=== PATIENT | female | born 1990 | race Caucasian/White ===

== ENCOUNTER 2017-03-08 00:23 | Emergency (ER) | payer OTHER ==
[~2017-03-08] VITALS: Ht 162.6 cm; Wt 54.5 kg
[~2017-03-08 00:23] MED LIST: ACET500C5 PO; CIPR500T4 PO; PHEN-538 PO; PREN1TAB49 PO
[2017-03-08 00:55] VITALS: Ht 162.6 cm; Wt 54.5 kg
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
[2017-03-08 03:16] LABS: ADD UMIC YES; UR ASCORBIC ACID NEGATIVE (NEGATIVE); UR BACTERIA MODERATE /HPF (NONE SEEN); UR BILIRUBIN (Dip) NEGATIVE (NEGATIVE); UR BLOOD (Dip) 3+ mg/dL (NEGATIVE); UR CLARITY CLOUDY (CLEAR); UR COLOR YELLOW (YELLOW); UR GLUCOSE (Dip) NEGATIVE (NEGATIVE); UR KETONES (Dip) NEGATIVE (NEGATIVE); UR LEUKOCYTE ESTERASE (Dip) 3+ Leu/ul (NEGATIVE); UR MUCUS FEW /HPF (NONE SEEN); UR NITRITE (Dip) NEGATIVE (NEGATIVE); UR RBC 24 /HPF (0-5); UR SPECIFIC GRAVITY (Dip) 1.009 (1.003-1.030); UR SQUAMOUS EPITHELIAL CELL FEW /HPF (FEW); UR TOTAL PROTEIN (Dip) 2+ mg/dl (NEGATIVE); UR UROBILINOGEN (Dip) NEGATIVE (NEGATIVE); UR WBC CLUMPS MANY /HPF (NONE SEEN)
[2017-03-08] MEDS ORDERED: CIPR500T4 PO (04:44)
[2017-03-08] MEDS ORDERED: PHEN-538 PO (04:44)
[2017-03-08] MEDS ORDERED: AZITHROMYCIN 250 MG TAB PO ONE (05:00)
[2017-03-08] MEDS ORDERED: CEFTRIAXONE 1 GM INJ IM ONE (05:00)
[2017-03-08 05:40] VITALS: BP 108/56; PULSE 82; RESP 15; TEMP 98.2
== END 2017-03-08 05:00 | disposition home or self-care (01) ==
LOC: FTE 00:23
DX: N39.0 Urinary tract infection, site not specified (principal)
CPT/HCPCS: 81001; 87591; 96372; Z7502

== ENCOUNTER 2017-06-05 15:57 | Emergency (ER) | payer OTHER ==
[~2017-06-05] VITALS: Ht 160 cm; Wt 50.1 kg
[2017-06-05 16:00] VITALS: Ht 160 cm; Wt 50.1 kg
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
[2017-06-05 19:22] VITALS: BP 128/87; PULSE 67; RESP 18
[2017-06-05] MEDS ORDERED: ACETAMINOPHEN 325 MG TAB PO ONE (19:30)
== END 2017-06-05 19:23 | disposition home or self-care (01) ==
LOC: FTE 15:57
DX: S09.90XA Unspecified injury of head, initial encounter (principal); S39.92XA Unspecified injury of lower back, initial encounter; R93.0 Abnormal findings on diagnostic imaging of skull and head, not elsewhere classified; Y04.8XXA Assault by other bodily force, initial encounter
CPT/HCPCS: 70450; 72100; 72125; Z7502; Z7610

== ENCOUNTER 2017-09-01 22:33 | Emergency (ER) | END 2017-09-02 03:44 | disposition home or self-care (01) ==